=== PATIENT | male | born 1970 | race Caucasian/White ===

== ENCOUNTER 2016-11-19 20:13 | Emergency (ER) | payer SELFPAY ==
[~2016-11-19] VITALS: Ht 177.8 cm; Wt 68.0 kg
[~2016-11-19 20:13] MED LIST: ASPI1TAB69 PO; BUSP5TAB PO; CHLO25CA2 PO; CLIN1CAP5 PO; LEXA10TA PO; RANI150T PO; REME15TA PO; VITA100T54 PO; ZOFR4TAB PO
[2016-11-19 20:14] VITALS: BP 130/60; PULSE 58; RESP 16; TEMP 97.8; O2SAT 99
[2016-11-19] MEDS ORDERED: SODIUM CHLORIDE 0.9% FLUSH 5 ML FLUSH IVF PRN (20:30)
[2016-11-19] MEDS ORDERED: ONDANSETRON HCL 4 MG/2 ML VIAL IVP ONE (20:30)
--- NOTE | 2016-11-19 20:35 | PD ---
HPI Chief Complaint: Complaint Time Seen by Provider: 20:30 Travel History International Travel<30 days: No Contact w/Intl Traveler<30days: No Traveled to known affect area: No History of Present Illness HPI 46-year-old male with history of alcohol abuse in the past, currently at [facility] for EtOH detox, urgency emergency Department with lower abdominal pain, decreased urine production with bilateral flank pain since this morning. Patient has a history of kidney stones in the past but otherwise no history of UTI or prostate problems. Patient does report to Dr. Avendaño he does have frequent urination at night, dribbling, and decreased stream over the past months. Patient has had some nausea but no vomiting fever chills or other symptoms. He has had a tiny amount of urinary production all day. Patient is currently on Librium for EtOH withdrawal prescribed by [facility]. Patient denies chest pain or shortness of breath. He is allergic to Aleve, Naprosyn, penicillin, and Vicodin. PFSH Past Medical History Hx Anticoagulant Therapy: Yes Arthritis: Yes (KNEES) Autoimmune Disease: No Bipolar Disorder: Yes (SCHIZOAFFECTIVE) Anxiety: Yes Depression: Yes Cancer: No Cardiovascular Problems: Yes (STENT x2/MIx2) Chest Pain: Yes Cerebrovascular Accident: No Diminished Hearing: No Diverticulitis: Yes Endocrine: No Gastrointestinal Disorders: Yes (DIVERTICULITIS) GERD: Yes Genitourinary: No Hypertension: Yes Immune Disorder: No Implanted Vascular Access Dvce: No Musculoskeletal: Yes Neurologic: Yes Psychiatric: Yes (HALLUCINATIONS) Reproductive: Yes (Genital warts) Respiratory: No Migraines: Yes Myocardial Infarction: Yes Schizophrenia: Yes Seizures: Yes Ulcer: Yes PNEUMOCCOCAL Vaccine (Year): 2010 Past Surgical History Abdominal Surgery: Yes (UMBILICAL HERNIA REPAIR X2) Appendectomy: Yes Other Surgery: Yes (GENITAL WARTS) Social History Alcohol Use: No (AT [facility]) Tobacco Use: Yes (2 PPD) Substance Use: Yes (MARIJUANA ON Tuesday10/14/16) Allergies-Medications (Allergen,Severity, Reaction): Coded Allergies: Aleve (Verified Allergy, Severe, CHIP DALJIT SYNDROME, SKIN FEELS LIKE IT IS BURNING, 11/19/16) Naproxen (Verified Allergy, Severe, CHIP DALJIT SYNDROME, SKIN FEELS LIKE IT IS BURNING., 11/19/16) Penicillin (Verified Allergy, Severe, HIVES, 11/19/16) Vicodin (Verified Allergy, Severe, ITCH, 11/19/16) Reported Meds & Prescriptions Reported Meds & Active Scripts Active Flomax (Tamsulosin HCl) 0.4 Mg Cap 0.4 Mg PO HS Cipro (Ciprofloxacin HCl) 500 Mg Tab 500 Mg PO BID Ranitidine (Ranitidine HCl) 150 Mg Tab 150 Mg PO BID Zofran (Ondansetron HCl) 4 Mg Tab 4 Mg PO Q6HR PRN 3 Days Clindamycin (Clindamycin HCl) 150 Mg Cap 300 Mg PO Q8HR 10 Days Reported Remeron (Mirtazapine) 15 Mg Tab 15 Mg PO HS Lexapro (Escitalopram Oxalate) 10 Mg Tab 10 Mg PO HS Buspirone (Buspirone HCl) 5 Mg Tab 5 Mg PO BID Aspirin 81 Mg Tabdr 81 Mg PO DAILY Chlordiazepoxide (Chlordiazepoxide HCl) 25 Mg Cap 25 Mg PO QID PRN Vitamin B-1 (Thiamine HCl) 100 Mg Tab 100 Mg PO DAILY Review of Systems Except as stated in HPI: all other systems reviewed are Neg General / Constitutional: No: Fever Eyes: No: Visual changes HENT: No: Headaches Cardiovascular: No: Chest Pain or Discomfort Respiratory: No: Shortness of Breath Gastrointestinal: Positive: Nausea, Abdominal Pain, No: Vomiting, Diarrhea Genitourinary: Positive: Urgency, Decreased Urinary Output, Pelvic Pain, Flank Pain, No: Frequency, Dysuria, Nocturia, Hematuria, Oliguria, Hesitancy, Dribbling, Incontinence, Discharge Musculoskeletal: No: Pain Skin: No Rash Neurologic: Positive: Tremor (current from EtOH withdrawal. See history of present illness.), No: Weakness Psychiatric: Positive: Substance Abuse, No: Anxiety, Depression, Suicidal Ideations, Homicidal Ideation Endocrine: No: Polydipsia Hematologic/Lymphatic: No: Easy Bruising Physical Exam Narrative GENERAL: Patient appears mildly anxious and tremulous in mild to moderate distress. SKIN: Warm and dry. Normal color. Normal turgor. HEAD: Atraumatic. Normocephalic. EYES: Pupils equal and round. No scleral icterus. No injection or drainage. ENT: No nasal bleeding or discharge. Mucous membranes pink and moist. Airways patent. Pharynx is normal. NECK: Trachea midline. No JVD. Neck is supple. CARDIOVASCULAR: Regular rate and rhythm. RESPIRATORY: No accessory muscle use. Clear to auscultation. Breath sounds equal bilaterally. GASTROINTESTINAL: Abdomen soft, diffuse lower abdominal tenderness with moderate distention consistent with urinary retention. Hepatic and splenic margins not palpable. Moderate bilateral CVA tenderness. MUSCULOSKELETAL: Extremities without clubbing, cyanosis, or edema. No obvious deformities. NEUROLOGICAL: Awake and alert. No obvious cranial nerve deficits. Motor grossly within normal limits. Five out of 5 muscle strength in the arms and legs. Normal speech. PSYCHIATRIC: Appropriate mood and affect; insight and judgment normal. Data Data Last Documented VS Vital Signs Date Time Temp Pulse Resp B/P Pulse Ox O2 Delivery O2 Flow Rate FiO2 11/19/16 20:14 97.8 58 16 130/60 99 Room Air Orders Complete Blood Count With Diff (11/19/16 20:28) Comprehensive Metabolic Panel (11/19/16 20:28) Urinalysis - C+S If Indicated (11/19/16 20:28) Iv Access Insert/Monitor (11/19/16 20:28) Ondansetron Inj (Zofran Inj) (11/19/16 20:30) Sodium Chloride 0.9% Flush (Ns Flush) (11/19/16 20:30) Urinary Catheter Insert/Apply (11/19/16 20:28) Tamsulosin (Flomax) (11/19/16 21:45) Ciprofloxacin (Cipro) (11/19/16 21:45) Acetaminophen (Tylenol) (11/19/16 21:45) Mandatory Outpatient Referral (11/19/16 21:48) Labs Laboratory Tests Test 11/19/16 20:45 White Blood Count 7.5 TH/MM3 Red Blood Count 4.25 MIL/MM3 Hemoglobin 13.8 GM/DL Hematocrit 39.0 % Mean Corpuscular Volume 91.7 FL Mean Corpuscular Hemoglobin 32.4 PG Mean Corpuscular Hemoglobin 35.4 % Concent Red Cell Distribution Width 14.9 % Platelet Count 159 TH/MM3 Mean Platelet Volume 10.2 FL Neutrophils (%) (Auto) 52.5 % Lymphocytes (%) (Auto) 37.1 % Monocytes (%) (Auto) 7.0 % Eosinophils (%) (Auto) 2.6 % Basophils (%) (Auto) 0.8 % Neutrophils # (Auto) 3.9 TH/MM3 Lymphocytes # (Auto) 2.8 TH/MM3 Monocytes # (Auto) 0.5 TH/MM3 Eosinophils # (Auto) 0.2 TH/MM3 Basophils # (Auto) 0.1 TH/MM3 CBC Comment DIFF FINAL Differential Comment Urine Color COLORLESS Urine Turbidity CLEAR Urine pH 5.0 Urine Specific [place] 1.007 Urine Protein NEG mg/dL Urine Glucose (UA) NEG mg/dL Urine Ketones NEG mg/dL Urine Occult Blood NEG Urine Nitrite NEG Urine Bilirubin NEG Urine Urobilinogen LESS THAN 2.0 MG/DL Urine Leukocyte Esterase NEG Microscopic Urinalysis Comment CULT NOT INDICATED Sodium Level 140 MEQ/L Potassium Level 4.4 MEQ/L Chloride Level 108 MEQ/L Carbon Dioxide Level 25.0 MEQ/L Anion Gap 7 MEQ/L Blood Urea Nitrogen 28 MG/DL Creatinine 1.01 MG/DL Estimat Glomerular Filtration 80 ML/MIN Rate Random Glucose 88 MG/DL Calcium Level 9.4 MG/DL Total Bilirubin 0.2 MG/DL Aspartate Amino Transf 22 U/L (AST/SGOT) Alanine Aminotransferase 40 U/L (ALT/SGPT) Alkaline Phosphatase 62 U/L Total Protein 6.9 GM/DL Albumin 4.0 GM/DL MDM Medical Decision Making Medical Screen Exam Complete: Yes Emergency Medical Condition: Yes Differential Diagnosis Renal colic. Prostatitis. Urinary retention. Possible kidney stones. Narrative Course Patient is felt to be medically stable at time of exam although uncomfortable. IV access is obtained and the patient has labs drawn including CBC, CMP. Mccormick catheter is placed to see if the patient is truly having urinary retention. Urinalysis is ordered. Patient is discussed with Dr. Avendaño sees the patient as well. After fully displaced patient has over 1200 mL's urine out with improved symptoms and less distention the abdomen. Diagnosis Primary Impression: Acute urinary retention Referrals: Ky Zavaleta DO Patient Instructions: Mccormick Catheter Placement and Care (ED), General Instructions, Prostatitis (ED) Additional Instructions: Patient to Follow-up with Dr. Zavaleta within a week. Return to ED if needed. Take meds as prescribed. Med/Other Pt SpecificInfo: Prescription(s) given Scripts Tamsulosin (Flomax)0.4 Mg Cap0.4 Mg PO HS #30 CAP Ref 0 Prov:Chip Avendaño MD 11/19/16 Ciprofloxacin (Cipro)500 Mg [id number] Mg PO BID #20 TAB Prov:Chip Avendaño MD 11/19/16 Disposition: 01 DISCHARGE HOME Condition: Stable Rubio Camejo Nov 19, 2016 20:35
[2016-11-19 21:17] LABS: AUTOMATED NEUTROPHIL # 3.9 TH/MM3 (1.8-7.7); BASOPHIL # 0.1 TH/MM3 (0-0.2); BASOPHIL % 0.8 % (0.0-2.0); EOSINOPHIL # 0.2 TH/MM3 (0-0.4); EOSINOPHIL % 2.6 % (0.0-4.0); HEMO FLAGS DIFF FINAL; LYMPH % 37.1 % (9.0-44.0); LYMPHOCYTE # 2.8 TH/MM3 (1.0-4.8); MEAN CELL VOLUME 91.7 FL (80.0-100.0); MEAN CORPUSCULAR HEMOGLOBIN 32.4 PG (27.0-34.0); MEAN CORPUSCULAR HGB CONC 35.4 % (32.0-36.0); NEUT % 52.5 % (16.0-70.0); PLATELET COUNT 159 TH/MM3 (150-450); RED BLOOD COUNT 4.25 MIL/MM3 (4.50-5.90); RED CELL DISTRIBUTION WIDTH 14.9 % (11.6-17.2); WHITE BLOOD COUNT 7.5 TH/MM3 (4.0-11.0)
[2016-11-19 21:23] LABS: BLOOD, URINE NEG (NEG); COMMENT (UR) CULT NOT INDICATED; CULTURE IF INDICATED CULT NOT INDICATED; GLUCOSE,URINE NEG (NEG); KETONE, URINE NEG (NEG); NITRITE,URINE NEG (NEG); URINE COLOR COLORLESS (YELLW/STRAW)
[2016-11-19 21:38] LABS: ANION GAP 7 MEQ/L (5-15); AST (GOT) 22 U/L (15-37); BLOOD UREA NITROGEN 28 MG/DL (7-18); CHLORIDE 108 MEQ/L (98-107); GLOMERULAR FILTRATION RATE 80 ML/MIN (>89); POTASSIUM 4.4 MEQ/L (3.5-5.1); SODIUM (NA) 140 MEQ/L (136-145)
[2016-11-19 21:41] LABS: ALKALINE PHOSPHATASE 62 U/L (45-117); ALT (GPT) 40 U/L (12-78); TOTAL BILIRUBIN ADULT 0.2 MG/DL (0.2-1.0)
[2016-11-19] MEDS ORDERED: CIPROFLOXACIN 750 MG TAB PO ONE (21:45)
[2016-11-19] MEDS ORDERED: ACETAMINOPHEN 500 MG CPLT PO ONE (21:45)
[2016-11-19] MEDS ORDERED: TAMSULOSIN HCL 0.4 MG CAP PO ONE (21:45)
[2016-11-19] MEDS ORDERED: CIPR-9 PO (21:47)
[2016-11-19] MEDS ORDERED: TAMS5CAP PO (21:47)
--- NOTE | 2016-11-19 22:33 | PD ---
Data Data Last Documented VS Vital Signs Date Time Temp Pulse Resp B/P Pulse Ox O2 Delivery O2 Flow Rate FiO2 11/19/16 20:14 97.8 58 16 130/60 99 Room Air Orders Complete Blood Count With Diff (11/19/16 20:28) Comprehensive Metabolic Panel (11/19/16 20:28) Urinalysis - C+S If Indicated (11/19/16 20:28) Iv Access Insert/Monitor (11/19/16 20:28) Ondansetron Inj (Zofran Inj) (11/19/16 20:30) Sodium Chloride 0.9% Flush (Ns Flush) (11/19/16 20:30) Urinary Catheter Insert/Apply (11/19/16 20:28) Tamsulosin (Flomax) (11/19/16 21:45) Ciprofloxacin (Cipro) (11/19/16 21:45) Acetaminophen (Tylenol) (11/19/16 21:45) Mandatory Outpatient Referral (11/19/16 21:48) Labs Laboratory Tests Test 11/19/16 20:45 White Blood Count 7.5 TH/MM3 Red Blood Count 4.25 MIL/MM3 Hemoglobin 13.8 GM/DL Hematocrit 39.0 % Mean Corpuscular Volume 91.7 FL Mean Corpuscular Hemoglobin 32.4 PG Mean Corpuscular Hemoglobin 35.4 % Concent Red Cell Distribution Width 14.9 % Platelet Count 159 TH/MM3 Mean Platelet Volume 10.2 FL Neutrophils (%) (Auto) 52.5 % Lymphocytes (%) (Auto) 37.1 % Monocytes (%) (Auto) 7.0 % Eosinophils (%) (Auto) 2.6 % Basophils (%) (Auto) 0.8 % Neutrophils # (Auto) 3.9 TH/MM3 Lymphocytes # (Auto) 2.8 TH/MM3 Monocytes # (Auto) 0.5 TH/MM3 Eosinophils # (Auto) 0.2 TH/MM3 Basophils # (Auto) 0.1 TH/MM3 CBC Comment DIFF FINAL Differential Comment Urine Color COLORLESS Urine Turbidity CLEAR Urine pH 5.0 Urine Specific [place] 1.007 Urine Protein NEG mg/dL Urine Glucose (UA) NEG mg/dL Urine Ketones NEG mg/dL Urine Occult Blood NEG Urine Nitrite NEG Urine Bilirubin NEG Urine Urobilinogen LESS THAN 2.0 MG/DL Urine Leukocyte Esterase NEG Microscopic Urinalysis Comment CULT NOT INDICATED Sodium Level 140 MEQ/L Potassium Level 4.4 MEQ/L Chloride Level 108 MEQ/L Carbon Dioxide Level 25.0 MEQ/L Anion Gap 7 MEQ/L Blood Urea Nitrogen 28 MG/DL Creatinine 1.01 MG/DL Estimat Glomerular Filtration 80 ML/MIN Rate Random Glucose 88 MG/DL Calcium Level 9.4 MG/DL Total Bilirubin 0.2 MG/DL Aspartate Amino Transf 22 U/L (AST/SGOT) Alanine Aminotransferase 40 U/L (ALT/SGPT) Alkaline Phosphatase 62 U/L Total Protein 6.9 GM/DL Albumin 4.0 GM/DL MDM Supervised Visit with KARLOS: Yes Narrative Course The history, exam, and medical decision-making in the associated mid-level provider note were completed with my assistance. I reviewed and agree with the findings presented. I attest that I had a [id number] encounter with the patient on the same day, and personally performed and documented my assessment and findings in the medical record. *My assessment and Findings: 46-year-old male with history of some prostate symptoms including nocturia, weak stream, difficulty initiating stream, being treated at [facility] for alcohol symptoms, receiving Librium, presents with acute retention times today. No history of previous acute retention. Mccormick catheter placed with significant output. Recommend leg bag, urology follow-up. Diagnosis Primary Impression: Acute urinary retention Referrals: Ky Zavaleta DO Patient Instructions: General Instructions, Ciprofloxacin (By mouth), Tamsulosin (By mouth), Prostatitis (ED), Mccormick Catheter Placement and Care (ED) Departure Forms: Tests/Procedures Additional Instruction: Patient to Follow-up with Dr. Zavaleta within a week. Return to ED if needed. Take meds as prescribed. Scripts Tamsulosin (Flomax)0.4 Mg Cap0.4 Mg PO HS #30 CAP Ref 0 Prov:Chip Avendaño MD 11/19/16 Ciprofloxacin (Cipro)500 Mg [id number] Mg PO BID #20 TAB Prov:Chip Avendaño MD 11/19/16 Disposition: 01 DISCHARGE HOME Condition: Stable Chip Avendaño MD Nov 19, 2016 22:33
[2016-11-20] MEDS ORDERED: [UNRECOGNIZED DRUG - CODE] (02:03)
== END 2016-11-19 23:03 | disposition home or self-care (01) ==
LOC: NEPE 20:13
DX: R33.9 Retention of urine, unspecified (principal); R10.9 Unspecified abdominal pain; R35.1 Nocturia; R11.0 Nausea; I10 Essential (primary) hypertension; F17.200 Nicotine dependence, unspecified, uncomplicated; I25.2 Old myocardial infarction; Z87.442 Personal history of urinary calculi; Z79.01 Long term (current) use of anticoagulants; Z87.39 Personal history of other diseases of the musculoskeletal system and connective tissue; Z86.59 Personal history of other mental and behavioral disorders; Z86.79 Personal history of other diseases of the circulatory system; Z87.19 Personal history of other diseases of the digestive system; Z86.69 Personal history of other diseases of the nervous system and sense organs
CPT/HCPCS: 51702; 80053; 81001; 85025; 96374; 99284; J2405

== ENCOUNTER 2016-11-20 00:30 | Emergency (ER) | payer SELFPAY ==
[~2016-11-20 00:30] MED LIST changes: +CIPR-9 PO; +TAMS5CAP PO
[2016-11-20 00:33] VITALS: BP 144/72; PULSE 61; RESP 15; TEMP 97.6; O2SAT 98
--- NOTE | 2016-11-20 01:19 | PD ---
HPI Chief Complaint: Medical Clearance Time Seen by Provider: 00:48 Travel History International Travel<30 days: No Contact w/Intl Traveler<30days: No Traveled to known affect area: No History of Present Illness HPI 46-year-old man, history of homelessness alcoholism and depression, at [facility] for alcohol detox after he was [employer] for SI. He was reportedly intoxicated and playing [employer] with a firearm. He no longer has the firearm. He was at [facility] when he developed acute urinary retention. He is apparently on about a 3 or 4. He has a plan to go on Tuesday to a long- term detox program in [place]. He was treated for acute urinary retention. Labs are normal. He had a Mccormick catheter placed. Was discharged back to [facility] but was sent back here as apparently having a Mccormick catheter is outside of their scope. History Past Medical History Narrative Medical Depression Alcoholism PNEUMOCCOCAL Vaccine (Year): 2010 Social History Alcohol Use: No (AT [facility]) Tobacco Use: Yes (10/25 PPD) Allergies-Medications (Allergen,Severity, Reaction): Coded Allergies: Aleve (Verified Allergy, Severe, CHIP DALJIT SYNDROME, SKIN FEELS LIKE IT IS BURNING, 11/20/16) Naproxen (Verified Allergy, Severe, CHIP DALJIT SYNDROME, SKIN FEELS LIKE IT IS BURNING., 11/20/16) Penicillin (Verified Allergy, Severe, HIVES, 11/20/16) Vicodin (Verified Allergy, Severe, ITCH, 11/20/16) Reported Meds & Prescriptions Reported Meds & Active Scripts Active Flomax (Tamsulosin HCl) 0.4 Mg Cap 0.4 Mg PO HS Cipro (Ciprofloxacin HCl) 500 Mg Tab 500 Mg PO BID Reported Lexapro (Escitalopram Oxalate) 10 Mg Tab 10 Mg PO HS Buspirone (Buspirone HCl) 5 Mg Tab 5 Mg PO BID Aspirin 81 Mg Tabdr 81 Mg PO DAILY Chlordiazepoxide (Chlordiazepoxide HCl) 25 Mg Cap 25 Mg PO QID PRN Review of Systems Except as stated in HPI: all other systems reviewed are Neg Physical Exam Narrative GENERAL: Well-appearing 46-year-old man. No acute distress. SKIN: Warm and dry. CARDIOVASCULAR: Warm and well perfused. RESPIRATORY: Normal rate and effort. MUSCULOSKELETAL: No deformity. NEUROLOGICAL: Awake and alert. No gross deficits. Data Data Last Documented VS Vital Signs Date Time Temp Pulse Resp B/P Pulse Ox O2 Delivery O2 Flow Rate FiO2 11/20/16 00:33 97.6 61 15 144/72 98 Room Air Orders Psych Screen (11/20/16 00:48) MDM Medical Decision Making Medical Screen Exam Complete: Yes Emergency Medical Condition: Yes Differential Diagnosis Depression, alcoholism, substance induced mood disorder, other Narrative Course Medical decision making 46-year-old man with a history depression and alcoholism, presents to the emergency department sent from [facility]. He was in their detox program. He ended up there after being [employer] for suicidality involving a firearm. At this point, we'll have psychiatry evaluate patient to see if he would be a candidate for psychiatric admission, reassess. Spoke with psychiatry. Renea, psych screener, spoke with [facility]. They' re willing to take patient back with either no catheter intermittent self catheter. I don't think the patient's likely to void on his own. Patient is very motivated to get through to this long-term detox program on Tuesday. He is willing to do intermittent self catheter as needed, understanding this is not our typical treatment regimen. We did start him on Flomax, and he may improve to the point that he will not need this. We'll pull Mccormick catheter, instructed on intermittent self catheterization, sent him with 6 catheters to use 3 times daily as needed. Continue Flomax. Diagnosis Primary Impression: Acute urinary retention Additional Instructions: Use intermittent self catheterization as instructed 3 times daily as needed. Continue Flomax. Return to the emergency department for any new or worsening symptoms. Med/Other Pt SpecificInfo: Prescription(s) given Scripts Incontinence Supplies ([facility] Mccormick Catheter St)1 Mis Mis #30 Applic .xx Prov:Chip Avendaño MD 11/20/16 Disposition: 01 DISCHARGE HOME Condition: Stable Chip Avendaño MD Nov 20, 2016 01:19
[2016-11-20] MEDS ORDERED: [UNRECOGNIZED DRUG - CODE] (02:03)
[2016-11-20] MEDS ORDERED: chlordiazePOXIDE 25 MG CAP PO PRN (03:45)
[2016-11-20 04:30] VITALS: BP 151/82; PULSE 67; RESP 18; O2SAT 99
--- NOTE | 2016-11-20 06:19 | PD ---
Data Data Last Documented VS Vital Signs Date Time Temp Pulse Resp B/P Pulse Ox O2 Delivery O2 Flow Rate FiO2 11/20/16 04:30 67 18 151/82 99 Room Air 11/20/16 00:33 97.6 Orders Psych Screen (11/20/16 00:48) Chlordiazepoxide (Librium) (11/20/16 03:45) MDM Supervised Visit with KARLOS: No Diagnosis Primary Impression: Acute urinary retention Patient Instructions: General Instructions, How to Catheterize Yourself (Man) ( GEN) Additional Instruction: Use intermittent self catheterization as instructed 3 times daily as needed. Continue Flomax. Return to the emergency department for any new or worsening symptoms. Scripts Incontinence Supplies ([facility] Mccormick Catheter St)1 Mis Mis #30 Applic .xx Prov:Chip Avendaño MD 11/20/16 Disposition: 01 DISCHARGE HOME Condition: Stable Chip Avendaño MD Nov 20, 2016 06:19
== END 2016-11-20 06:48 | disposition home or self-care (01) ==
LOC: NEPE 00:30
DX: R33.9 Retention of urine, unspecified (principal)
CPT/HCPCS: 99282

== ENCOUNTER 2017-11-15 16:09 | Inpatient (IN) | payer OTHER ==
[~2017-11-15] VITALS: Ht 172.7 cm; Wt 69.2 kg
[~2017-11-15 16:09] MED LIST changes: -CLIN1CAP5 PO; -RANI150T PO; -REME15TA PO; -VITA100T54 PO; -ZOFR4TAB PO; +[UNRECOGNIZED DRUG - CODE]
[2017-11-15 17:58] VITALS: BP 126/86; PULSE 54; RESP 19; TEMP 98.3
[2017-11-15] MEDS ORDERED: QUET1TAB7 PO (18:09)
[2017-11-15] MEDS ORDERED: ALPR0.5T3 PO (18:09)
[2017-11-15] MEDS ORDERED: QUET1TAB8 PO (18:09)
[2017-11-15] MEDS ORDERED: NICO14DI T-DERMAL (18:09)
[2017-11-15] MEDS ORDERED: ASPI-516 CHEW (18:09)
[2017-11-15] MEDS ORDERED: FOLI400T PO (18:09)
[2017-11-15] MEDS ORDERED: COLA100C5 (18:09)
[2017-11-15] MEDS ORDERED: VITA100T54 PO (18:09)
[2017-11-15] MEDS ORDERED: TYLE325T PO (18:09)
[2017-11-15] MEDS ORDERED: SIMV40TA PO (18:09)
[2017-11-15] MEDS ORDERED: ALUMINUM/MAGNESIUM/SIMETH 30 ML CUP PO PRN (19:30)
[2017-11-15] MEDS ORDERED: MAGNESIUM HYDROXIDE SUSP 30 ML CUP PO PRN (19:30)
[2017-11-15] MEDS ORDERED: NON-FORMULARY DRUG (Simvastatin 40 MG) PO SCH (21:00)
[2017-11-15] MEDS: REMOVE OLD NICODERM (NICOTINE) PATCH T-DERMAL SCH (21:00)
[2017-11-15] MEDS: diphenhydrAMINE HCL 50 MG CAP PO PRN (21:20)
[2017-11-15] MEDS: PRAVASTATIN SOD 80 MG TAB PO SCH (21:20)
[2017-11-16 05:42] VITALS: BP 139/68; PULSE 51; RESP 17; TEMP 97.8; O2SAT 98
[2017-11-16] MEDS: ASPIRIN 81 MG CHEW TAB CHEW SCH (08:25)
[2017-11-16] MEDS: FOLIC ACID 1 MG TAB PO SCH (08:25)
[2017-11-16] MEDS: NICOTINE 14 MG/24 HR PATCH T-DERMAL SCH (08:29)
[2017-11-16] MEDS ORDERED: PNEUMOCOCCAL POLYVALENT INJ 25 MCG/0.5 ML SYR IM ONE (09:00)
[2017-11-16] MEDS ORDERED: INFLUENZA VIRUS VACCINE (QUADRIVALENT) 0.5 ML SYR IM ONE (09:00)
[2017-11-16] MEDS: THIAMINE HCL 100 MG TAB PO SCH (10:53)
--- NOTE | 2017-11-16 12:15 | HHI.HP ---
Provisional Diagnosis Admission Date Nov 15, 2017 at 17:42 Ermine I. Schizoaffective disorder depressed type of 25.1, alcohol abuse by history Certification of Person's Competence To Provide Express and Informed Consent I have personally examined Trey Gongora , a person being served at [facility] on, Nov 16, 2017 11:55. Express and informed consent means consent voluntarily given in writing, by a competent person, after sufficient explanation and disclosure of the subject matter involved to enable the person to make a knowing and willful decision without any element of force, fraud, deceit, duress, or other form of constraint or coercion. This person is 18 years of age or older, is not now known to be incompetent to consent to treatment with a guardian advocate, and does not have a health care surrogate or proxy currently making medical treatment decisions. I have found this person to be one of the following: [xxxx] Competent to provide express and informed consent, as defined above, for voluntary admission to this facility and is competent to provide express and informed consent for treatment. He/she has the consistent capacity to make well reasoned, willful, and knowing decisions concerning his or her medical or mental health treatment. The person fully and consistently understands the purpose of the admission for examination/placement and is fully capable of personally exercising all rights assured [place] Incompetent to provide express and informed consent to voluntary admission, and this is incompetent to provide express and informed consent to treatment. The person must be transferred to involuntary status and a petition for a guardian advocate filed with the Circuit Court. [] Refusing to provide express and informed consent to voluntary admission but is competent to provide express and informed consent for treatment. The person must be discharged or transferred to involuntary status. Form shall be completed within 24 hours of a person's arrival at the receiving facility and filed in the clinical record of each person: 1. Admitted on a voluntary basis 2. Permitted to provide express and informed consent to his/her own treatment 3. Allowed to transfer from involuntary to voluntary status 4. Prior to permitting a person to consent to his or her own treatment after having been previously found incompetent to consent to treatment. History of Present Illness Capacity: Has Capacity Psych Chief Complaint: depression suicidal ideation HPI Patient is a 47-year-old white male who comes here under Boucher act signed by froilan saavedra from [facility] dated 11/14/17 at 1311 hrs. that document reviewed it essentially is stating "un controlled schizoaffective disorder severe anxiety depression suicidal idea persistent, alcohol abuse, drug abuse tobacco abuse that also states a previous attempt reported said [place] in hand on attempting at access to many guns and persistent idea for suicidal upon discussing discharge plans after medical clearance said "I need help I will just take care of myself pending after going home said to hang self and hospital bathroom I need one-to-one sitter" patient was admitted to [facility] on 11/06/17. The medical records faxed to us while we considered transfer to our psychiatric unit had no admitting laboratory data we do not know patient's urine toxicology, we did not know his blood alcohol level on admission. At the time patient is also complaining of chest pain that was examined and cleared during the hospitalization There is a document faxed from [facility] dated 11/11/17 signed by a peter gentile md that states under treatment recommendations "patient does not meet the criteria for psychiatric hospitalization refer him to the outpatient substance abuse rehabilitation program, I have discussed the case at length with the medical doctor and advised her to decrease the dose of Librium 10 mg by mouth twice a day when necessary for alcohol withdrawal symptoms as he is not experiencing any withdrawal at this time. Discontinue Ativan and all other when necessary medications. Case management to help with the discharge planning. Thank you for allowing me to participate in the case of this patient" patient was medically cleared and transferred here under the Boucher act as mentioned above. Patient seen by me today on 2600 with nurse Janice present throughout session patient did recognize me from prior contact with hours working at [facility] see issue 5-6 years ago. Patient states he lives with a friend in a house in 2 of his brother. He acknowledges that he and his roommate drink daily. He acknowledges a.m. drinking, so drinking, blackouts spells, passing out, he drinks 1.75 L of gin or more daily. He acknowledges at least 5-6 detox programs over the past 20 years with at least 5-6 rehabilitation programs. The most recent detox being last year at [facility]. He subsequently spent 2 months in rehabilitation. States his sobriety lasted less than a month. He has not had any significant psychiatric follow-up. Restates Seroquel that was prescribed at [facility] does help him sleep and calm him somewhat. He acknowledges strong family history of alcohol related issues. He states he has been twice, has no children. He is vague about any prior physical and/ or sexual abuse. He does denies suicidality to me today. He is aware of the role blocks to finding another inpatient rehabilitation program. He does acknowledge that his risk of relapse to drinking is very high. At the present time I feel patient does meet criteria for a brief further stabilization. But I do feel he has capacity to sign for this admission thus I'll lift the Boucher act allow him to sign voluntary. Will start Seroquel 50 mg at bedtime. Will refrain from any opiates or benzodiazepines.Counselor give patient a list of various sober living facilities for him to [facility] consider discharge 24-48 hours Review of Systems Constitutional: DENIES: Diaphoretic episodes, Fatigue, Fever, Weight gain, Weight loss, Chills, Dizziness, Change in appetite, Night Sweats Endocrine: DENIES: Heat/cold intolerance, Polydipsia, Polyuria, Polyphagia Eyes: DENIES: Blurred vision, Diplopia, Eye inflammation, Eye pain, Vision loss , Photosensitivity, Double Vision Ears, nose, mouth, throat: DENIES: Tinnitus, Hearing loss, Vertigo, Nasal discharge, Oral lesions, Throat pain, Hoarseness, Ear Pain, Running Nose, Epistaxis, Sinus Pain, Toothache, Odynophagia Respiratory: DENIES: Apneas, Cough, Snoring, Wheezing, Hemoptysis, Sputum production, Shortness of breath Cardiovascular: DENIES: Chest pain, Palpitations, Syncope, Dyspnea on Exertion , PND, Lower Extremity Edema, Orthopnea, Claudication Gastrointestinal: DENIES: Abdominal pain, Black stools, Bloody stools, Constipation, Diarrhea, Nausea, Vomiting, Difficulty Swallowing, Anorexia Genitourinary: DENIES: Sexual dysfunction, Urinary frequency, Urinary incontinence, Urgency, Hematuria, Dysuria, Nocturia, Penile Discharge, Testicular Pain, Testicular Swelling Musculoskeletal: DENIES: Joint pain, Muscle aches, Stiffness, Joint Swelling, Back pain, Neck pain Integumentary: DENIES: Abnormal pigmentation, Nail changes, Pruritus, Rash Hematologic/lymphatic: DENIES: Bruising, Lymphadenopathy Immunologic/allergic: DENIES: Eczema, Urticaria Neurologic: DENIES: Abnormal gait, Headache, Localized weakness, Paresthesias, Seizures, Speech Problems, Tremor, Poor Balance Psychiatric: COMPLAINS OF: Depression, Suicidal Ideation (denies) Past Psych History Psychological trauma history Denies Violence risk - others (6 mos) Low Violence risk - self (6 mos) Low to moderate Substance Abuse History Drugs/Alcohol past 12 months Active alcoholic Past Family Social History Coded Allergies: acetaminophen (Unverified Allergy, Severe, ITCH, 06/07/17) hydrocodone (Unverified Allergy, Severe, ITCH, 06/07/17) naproxen (Unverified Allergy, Severe, CHIP DALJIT SYNDROME, SKIN FEELS LIKE IT IS BURNING., 06/07/17) penicillin G (Unverified Allergy, Severe, HIVES, 06/07/17) Reported Medications Thiamine (Vitamin B-1) 100 Mg Tab, 100 MG PO DAILY for Nutritional Supplement, TAB 0 Refills 11/15/17 Simvastatin (Simvastatin) 40 Mg Tab, 40 MG PO HS for Cholesterol Management, # 30 TAB 0 Refills 11/15/17 Nicotine Patch (Nicotine Patch) 14 Mg/24 Hr Patch, 14 MG T-DERMAL DAILY for Smoking Cessation, #30 PATCH 0 Refills 11/15/17 Folic Acid (Folic Acid) 0.4 Mg Tab, 1 MG PO DAILY for Nutritional Supplement, TAB 0 Refills 11/15/17 Docusate Sodium (Colace) 100 Mg Capsule, BID 11/15/17 Aspirin (Aspirin) 81 Mg Chew, 81 MG CHEW DAILY, TAB 0 Refills 11/15/17 Acetaminophen (Tylenol) 325 Mg Tab, 325 MG PO ONCE, #1 TAB 0 Refills 11/15/17 Discontinued Reported Medications Quetiapine (Quetiapine) 25 Mg Tab, 25 MG PO DAILY, #30 TAB 0 Refills 11/15/17 Quetiapine (Quetiapine) 100 Mg Tab, 100 MG PO HS, #30 TAB 0 Refills 11/15/17 Alprazolam (Alprazolam) 0.5 Mg Tab, 0.5 MG PO Q12HR Y for ANXIETY, TAB 0 Refills 11/15/17 Escitalopram (Lexapro) 10 Mg Tab, 10 MG PO HS, #30 TAB 0 Refills 10/17/16 Buspirone (Buspirone) 5 Mg Tab, 5 MG PO BID for Anxiety, TAB 0 Refills 10/17/16 Aspirin (Aspirin) 81 Mg Tabdr, 81 MG PO DAILY, TAB 10/17/16 Chlordiazepoxide (Chlordiazepoxide) 25 Mg Cap, 25 MG PO QID Y for Anxiety, CAP 0 Refills 10/17/16 Discontinued Scripts Incontinence Supplies ([facility] [facility] [address] [facility]) 1 Mis Mis, APPLIC .XX, #30 Prov:Chip Avendaño MD 11/20/16 Tamsulosin (Flomax) 0.4 Mg Cap, 0.4 MG PO HS for Manage Prostate Problems, #30 CAP 0 Refills Prov:Chip Avendaño MD 11/19/16 Ciprofloxacin (Cipro) 500 Mg Tab, 500 MG PO BID for Infection, #20 TAB Prov:Chip Avendaño MD 11/19/16 Current Medications Medications (Trade) Dose Ordered Sig/Parth Route Start Time Stop Time Status Last Admin (Aspirin Chew) 81 mg DAILY CHEW 11/16/17 09:00 11/16/17 08:25 (Folate) 1 mg DAILY PO 11/16/17 09:00 11/16/17 08:25 (Habitrol 14 Mg Patch.24 Hr) 14 patch DAILY T-DERMAL 11/16/17 09:00 11/16/17 08:29 (Vitamin B1) 100 mg DAILY PO 11/16/17 09:00 11/16/17 10:53 (Benadryl) 50 mg HS PRN PO 11/15/17 19:30 11/15/17 21:20 (Milk Of Magnesia Liq) 30 ml DAILY PRN PO 11/15/17 19:30 (Mag-Al Plus Susp Liq) 30 ml Q6H PRN PO 11/15/17 19:30 (Pravachol) 80 mg HS PO 11/15/17 21:00 11/15/17 21:20 Miscellaneous Information 1 HS T-DERMAL 11/15/17 21:00 (Tylenol) 650 mg Q4H PRN PO 11/16/17 11:45 UNV (Tylenol) 325 mg ONCE PO 11/16/17 11:45 UNV Family Psych History Strong history substance abuse and alcohol and family Social History Patient single lives with roommate who is also an active alcoholic Patient's Strengths (min. 2) Patient verbal cooperative irritable axis health care Physical Exam Patient medically cleared through [facility] admission. The percent pacing quietly in his room he is in no acute distress, he is in no respiratory distress, no complaint abdominal pain. Patient moves all 4 extremities without difficulty, no abnormal motor movements noted Vital Signs Vital Signs Date Time Temp Pulse Resp B/P (MAP) Pulse Ox O2 Delivery O2 Flow Rate FiO2 11/16/17 05:42 97.8 51 17 139/68 (91) 98 Lab Results Test 11/16/17 10:43 Mental Status Examination Appearance: Appropriate Consciousness: Alert Orientation: x4 Motor Activity: Normal gait Speech: Unremarkable Language: Adequate Fund of Knowledge: Adequate Attention and Concentration: Adequate Memory: Unremarkable Mood: Sad (mildly dysphoric) Affect: Other (good range and intensity) Thought Process & Associations: Intact Thought Content: Appropriate Hallucination Type: None Delusion Type: None Suicidal Ideation: Yes (denies) Suicidal Plan: Yes (denies) Suicidal Intention: Yes (denies) Homicidal Ideation: No Homicidal Plan: No Homicidal Intention: No Insight: Fair Judgment: Impulsive Assessment & Plan Problem List: (1) History of alcohol abuse ICD Codes: Z87.898 - Personal history of other specified conditions (2) Schizoaffective disorder ICD Codes: F25.9 - Schizoaffective disorder, unspecified Status: Acute Assessment & Plan Estimated LOS: 2-3 days patient is criteria for further observation assessment , though I feel he has the capacity sign voluntary will lift Boucher act allow him to sign voluntary. We will add Seroquel 50 mg daily at bedtime. Will refrain from benzodiazepines or opiates. Will of counselor supply patient with sober living information for him to explore Discharge Planning Patient can return to his home where she shares with another drinker. Look towards perhaps a sober living Request HC Surrog/Guard Advoc?: No Problem Qualifiers (1) Schizoaffective disorder: Qualified Codes: F25.1 - Schizoaffective disorder, depressive type Rayshawn Lee MD Nov 16, 2017 12:15
[2017-11-16 12:22] LABS: BICARBONATE 25.6 MEQ/L (21.0-32.0); BLOOD UREA NITROGEN 9 MG/DL (7-18); CALCIUM 9.7 MG/DL (8.5-10.1); CHLORIDE 108 MEQ/L (98-107); CHOLESTEROL 165 MG/DL (120-200); CREATININE 0.85 MG/DL (0.60-1.30); GLOMERULAR FILTRATION RATE 97 ML/MIN (>89); GLUCOSE,RANDOM 76 MG/DL (74-106); SODIUM (NA) 142 MEQ/L (136-145)
[2017-11-16 12:32] LABS: CHOLESTEROL/ HDL RATIO 3.13 RATIO; HDL CHOLESTEROL 52.6 MG/DL (40.0-60.0); LDL CHOLESTEROL 91 MG/DL (0-99); TRIGLYCERIDES 107 MG/DL (42-150)
--- NOTE | 2017-11-16 12:47 | PD.CONS ---
HPI Service [facility] Consult Requested By Reason for Consult medical management Primary Care Physician No Primary Care Physician Diagnoses: History of Present Illness patient is a 47 y/o male with history of depression, anxiety, CAD- alcohol abuse was transferred from [facility] because of suicidal thoughts. he says that ' he drinks a lot'. he went to [facility] with chest pain. he was evaluated for chest pain and was cleared for discharge. however due to some suicidal comments, he was admitted to the psych unit. at the time of my evaluation he was resting comfortably with no chest pain, sob, dizziness, nausea or abdominal pain but he was asking for ' something for his anxiety'. Review of Systems Constitutional: DENIES: Fever, Weight loss, Chills, Night Sweats Eyes: DENIES: Blurred vision, Diplopia, Vision loss, Double Vision Ears, nose, mouth, throat: DENIES: Tinnitus, Vertigo, Throat pain, Epistaxis Respiratory: DENIES: Apneas, Cough, Snoring, Wheezing, Hemoptysis, Sputum production, Shortness of breath Cardiovascular: DENIES: Chest pain, Palpitations, Syncope, Dyspnea on Exertion , PND, Lower Extremity Edema, Orthopnea, Claudication Gastrointestinal: DENIES: Abdominal pain, Black stools, Bloody stools, Constipation, Diarrhea, Nausea, Vomiting, Difficulty Swallowing, Anorexia Genitourinary: DENIES: Urinary frequency, Urgency, Hematuria, Dysuria Musculoskeletal: DENIES: Joint pain, Muscle aches, Stiffness, Joint Swelling Integumentary: DENIES: Rash Neurologic: DENIES: Abnormal gait, Headache, Localized weakness, Paresthesias, Seizures, Speech Problems, Tremor, Poor Balance Psychiatric: COMPLAINS OF: Anxiety, Suicidal Ideation, DENIES: Confusion, Mood changes, Depression, Hallucinations, Agitation, Homicidal Ideation, Delusions Past Family Social History Allergies: Coded Allergies: acetaminophen (Unverified Allergy, Severe, ITCH, 06/07/17) hydrocodone (Unverified Allergy, Severe, ITCH, 06/07/17) naproxen (Unverified Allergy, Severe, LISANDRO DALJIT SYNDROME, SKIN FEELS LIKE IT IS BURNING., 06/07/17) penicillin G (Unverified Allergy, Severe, HIVES, 06/07/17) Past Medical History CAD- s/p stent placement/ hypertension/ dyslipidemia/ depression Past Surgical History cardiac stent placement/ hernia repair. Reported Medications aspirin/ simvastatin. Active Ordered Medications Inpatient Medications Acetaminophen (Tylenol) 325 mg ONCE PO ; Start 11/16/17 at 11:45; Status UNV Al Hydrox/Mg Hydrox/Simethicone (Mag-Al Plus Susp Liq) 30 ml Q6H PRN PO DYSPEPSIA; Start 11/15/17 at 19:30 Aspirin (Aspirin Chew) 81 mg DAILY CHEW Last administered on 11/16/17at 08:25; Start 11/16/17 at 09:00 Diphenhydramine HCl (Benadryl) 50 mg HS PRN PO INSOMNIA Last administered on at 21:20; Start 11/15/17 at 19:30 Folic Acid (Folate) 1 mg DAILY PO Last administered on 11/16/17at 08:25; Start 11/16/17 at 09:00 Influenza Virus Vaccine (Flu (Quadrivalent) Vaccine Inj) 0.5 ml ONCE ONCE IM ; Start 11/16/17 at 09:00; Stop 11/16/17 at 09:01; Status DC Magnesium Hydroxide (Milk Of Magnesia Liq) 30 ml DAILY PRN PO CONSTIPATION; Start 11/15/17 at 19:30 Miscellaneous Information 1 HS T-DERMAL ; Start 11/15/17 at 21:00 Nicotine (Habitrol 14 Mg Patch.24 Hr) 14 patch DAILY T-DERMAL Last administered on 11/16/17at 08:29; Start 11/16/17 at 09:00 Non-Formulary Medication 40 mg HS PO ; Start 11/15/17 at 21:00; Stop 11/15/17 at 21:00; Status DC Pneumococcal Polyvalent Vaccine (Pneumovax-23 Inj) 25 mcg ONCE ONCE IM ; Start 11/16/17 at 09:00; Stop 11/16/17 at 09:01; Status DC Pravastatin Sodium (Pravachol) 80 mg HS PO Last administered on 11/15/17at 21:20 ; Start 11/15/17 at 21:00 Quetiapine Fumarate (SEROquel) 50 mg HS PO ; Start 11/16/17 at 21:00; Status UNV Thiamine HCl (Vitamin B1) 100 mg DAILY PO Last administered on 11/16/17at 10:53 ; Start 11/16/17 at 09:00 Family History diabetes in brother. Social History smokes less than a pack a day- drinks daily. Physical Exam Vital Signs Vital Signs Date Time Temp Pulse Resp B/P (MAP) Pulse Ox O2 Delivery O2 Flow Rate FiO2 11/16/17 05:42 97.8 51 17 139/68 (91) 98 11/15/17 17:58 98.3 54 19 126/86 (99) Physical Exam GENERAL: This is a well-nourished, well-developed patient, in no apparent distress. SKIN: No rashes, ecchymoses or lesions. Cool and dry. HEAD: Atraumatic. Normocephalic. No temporal or scalp tenderness. EYES: Pupils equal round and reactive. Extraocular motions intact. No scleral icterus. No injection or drainage. ENT: Nose without bleeding, purulent drainage or septal hematoma. Throat without erythema, tonsillar hypertrophy or exudate. Uvula midline. Airway patent. NECK: Trachea midline. No JVD or lymphadenopathy. Supple, nontender, no meningeal signs. CARDIOVASCULAR: Regular rate and rhythm without murmurs, gallops, or rubs. RESPIRATORY: Clear to auscultation. Breath sounds equal bilaterally. No wheezes , rales, or rhonchi. GASTROINTESTINAL: Abdomen soft, non-tender, nondistended. No hepato-splenomegaly , or palpable masses. No guarding. MUSCULOSKELETAL: Extremities without clubbing, cyanosis, or edema. No joint tenderness, effusion, or edema noted. No calf tenderness. Negative Homans sign bilaterally. NEUROLOGICAL: Awake and alert. Cranial nerves II through XII intact. Motor and sensory grossly within normal limits. Five out of 5 muscle strength in all muscle groups. Normal speech. Laboratory Laboratory Tests Test 11/16/17 10:43 Blood Urea Nitrogen 9 Creatinine 0.85 Random Glucose 76 Calcium Level 9.7 Sodium Level 142 Potassium Level 4.3 Chloride Level 108 Carbon Dioxide Level 25.6 Anion Gap 8 Estimat Glomerular Filtration Rate 97 Triglycerides Level 107 Cholesterol Level 165 LDL Cholesterol 91 HDL Cholesterol 52.6 Cholesterol/HDL Ratio 3.13 Thyroid Stimulating Hormone 3rd Gen 0.803 Result Diagram: 11/16/17 1043 Assessment and Plan Assessment and Plan A/P - depression/ anxiety with suicidal thoughts management per psych. -CAD- s/p stent placement; continue aspirin and statin.. -alcohol abuse; counselled on drinking cessation- watch for withdrawal- continue thiamine and folic acid thank you for the consult. Discussed Condition With the patient and . Mar Ball MD Nov 16, 2017 12:47
[2017-11-16] MEDS ORDERED: ACETAMINOPHEN 325 MG TAB PO PRN (13:00)
[2017-11-16] MEDS ORDERED: ACETAMINOPHEN 325 MG TAB PO ONE (13:00)
[2017-11-16 15:33] LABS: HEMOGLOBIN A1C 5.5 % (4.3-6.0)
[2017-11-16 18:00] VITALS: BP 131/68; PULSE 68; RESP 18; TEMP 98.5; O2SAT 98
[2017-11-16] MEDS: REMOVE OLD NICODERM (NICOTINE) PATCH T-DERMAL SCH (20:15)
[2017-11-16] MEDS: PRAVASTATIN SOD 80 MG TAB PO SCH (20:15)
[2017-11-16] MEDS: diphenhydrAMINE HCL 50 MG CAP PO PRN (20:15)
[2017-11-16] MEDS ORDERED: QUEtiapine FUMARATE 25 MG TAB PO SCH (21:00)
[2017-11-17 05:34] VITALS: BP 140/79; PULSE 50; RESP 16; TEMP 97.8; O2SAT 99
[2017-11-17] MEDS: NICOTINE 14 MG/24 HR PATCH T-DERMAL SCH (09:00)
[2017-11-17] MEDS: THIAMINE HCL 100 MG TAB PO SCH (09:32)
[2017-11-17] MEDS: FOLIC ACID 1 MG TAB PO SCH (09:32)
[2017-11-17] MEDS: ASPIRIN 81 MG CHEW TAB CHEW SCH (09:32)
[2017-11-17] MEDS ORDERED: SERO25TA PO (14:18)
--- NOTE | 2017-11-17 14:22 | HHI.DS ---
Psychiatry Discharge Summary Inpatient Psychiatric care?: Yes Advance Directive: No Reason Not Provided: patient declined at this time Mental Health AdvanceDirective: Berger and Number: patient declined at this time Health Care Proxy: Berger and Phone Number: patient declined at this time Admission Admission Date Nov 15, 2017 at 17:42 Admission Diagnosis: (1) Schizoaffective disorder ICD Code: F25.9 - Schizoaffective disorder, unspecified (2) History of alcohol abuse ICD Code: Z87.898 - Personal history of other specified conditions Brief History Patient is a 47-year-old white male who comes here under [employer] act signed by froilan saavedra from [facility] dated 11/14/17 at 1311 hrs. that document reviewed it essentially is stating "un controlled schizoaffective disorder severe anxiety depression suicidal idea persistent, alcohol abuse, drug abuse tobacco abuse that also states a previous attempt reported said [place] in hand on attempting at access to many guns and persistent idea for suicidal upon discussing discharge plans after medical clearance said "I need help I will just take care of myself pending after going home said to hang self and hospital bathroom I need one-to-one sitter" patient was admitted to [facility] on 11/06/17. The medical records faxed to us while we considered transfer to our psychiatric unit had no admitting laboratory data we do not know patient's urine toxicology, we did not know his blood alcohol level on admission. At the time patient is also complaining of chest pain that was examined and cleared during the hospitalization There is a document faxed from [facility] dated 11/11/17 signed by froilan gentile md that states under treatment recommendations "patient does not meet the criteria for psychiatric hospitalization refer him to the outpatient substance abuse rehabilitation program, I have discussed the case at length with the medical doctor and advised her to decrease the dose of Librium 10 mg by mouth twice a day when necessary for alcohol withdrawal symptoms as he is not experiencing any withdrawal at this time. Discontinue Ativan and all other when necessary medications. Case management to help with the discharge planning. Thank you for allowing me to participate in the case of this patient" patient was medically cleared and transferred here under the [employer] act as mentioned above. Patient seen by me today on 2600 with nurse Janice present throughout session patient did recognize me from prior contact with hours working at [facility] see issue 5-6 years ago. Patient states he lives with a friend in a house in 2 of his brother. He acknowledges that he and his roommate drink daily. He acknowledges a.m. drinking, so drinking, blackouts spells, passing out, he drinks 1.75 L of gin or more daily. He acknowledges at least 5-6 detox programs over the past 20 years with at least 5-6 rehabilitation programs. The most recent detox being last year at [email or web address]. He subsequently spent 2 months in rehabilitation. States his sobriety lasted less than a month. He has not had any significant psychiatric follow-up. Restates Seroquel that was prescribed at [facility] does help him sleep and calm him somewhat. He acknowledges strong family history of alcohol related issues. He states he has been twice, has no children. He is vague about any prior physical and/ or sexual abuse. He does denies suicidality to me today. He is aware of the role blocks to finding another inpatient rehabilitation program. He does acknowledge that his risk of relapse to drinking is very high. At the present time I feel patient does meet criteria for a brief further stabilization. But I do feel he has capacity to sign for this admission thus I'll lift the [facility] allow him to sign voluntary. Will start Seroquel 50 mg at bedtime. Will refrain from any opiates or benzodiazepines.Counselor give patient a list of various sober living facilities for him to [facility] consider discharge 24-48 hours Tobacco Use In Past 30 Days: 5 or More Cigarettes/Day Alcohol Use: 4 or More Times Per Week Hospital Course Patient's hospital course was uneventful, patient seen today with nurse Rosario, patient states she slept well last night he now denies suicidality homicidality voices or visions. Patient is clean and neat dressed appropriately. He states he now has at least claimed desire to stop drinking. He is willing to go to meetings. And he is willing to make it effort at abstinence. He is willing to follow-up through [facility] for his mental health medications. Patient states she has enough of his medical medications at home we will only write a prescription for the Seroquel 50 mg at at bedtime #30 with no refills. Patient be discharged from [facility] Results Blood Pressure 140 / 79 Vital Signs Date Time Temp Pulse Resp B/P (MAP) Pulse Ox O2 Delivery O2 Flow Rate FiO2 11/17/17 05:34 97.8 50 16 140/79 (99) 99 Laboratory Tests Test 11/16/17 10:43 Chloride Level 108 MEQ/L (98-107) Laboratory Results Test 11/16/17 10:43 Cholesterol Level 165 MG/DL (120-200) HDL Cholesterol 52.6 MG/DL (40.0-60.0) Hemoglobin A1c 5.5 % (4.3-6.0) LDL Cholesterol 91 MG/DL (0-99) Triglycerides Level 107 MG/DL (42-150) Summary of Procedures None done Pending results at discharge: No Medications # of Antipsychotic meds at D/C: 1 Approp Antipsych med options 1 - Minimum of three failed multiple trials of monotherapy. 2 - Documented plan to taper to monotherapy due to previous use of multiple meds OR cross-taper in progress at D/C. 3 - Documentation of augmentation of Clozapine. 4 - Justification other than those listed in allowable values 1-3, document here : Discharge Discharge Date: Nov 17, 2017 Discharge Diagnosis: (1) Schizoaffective disorder Diagnosis: Principal ICD Code: F25.9 - Schizoaffective disorder, unspecified Status: Acute (2) History of alcohol abuse Diagnosis: Secondary ICD Code: Z87.898 - Personal history of other specified conditions Pt Condition on Discharge: Stable Discharge Disposition: Discharge Home Discharge Instructions Diet Instructions: As Tolerated, No Restrictions Activities you can perform: Regular-No Restrictions Scheduled Appointment: [facility] (also referred to AA) Discharge Time > 30 minutes Mental Status Examination Appearance: Appropriate Consciousness: Alert Orientation: x4 Motor Activity: Normal gait Speech: Unremarkable Language: Adequate Fund of Knowledge: Adequate Attention and Concentration: Adequate Memory: Unremarkable Mood: Sad (mildly dysphoric) Affect: Other (good range and intensity) Thought Process & Associations: Intact Thought Content: Appropriate Hallucination Type: None Delusion Type: None Suicidal Ideation: Yes (denies) Suicidal Plan: Yes (denies) Suicidal Intention: Yes (denies) Homicidal Ideation: No Homicidal Plan: No Homicidal Intention: No Insight: Fair Judgment: Impulsive Discharge/Advance Care Plan Health Problems: (1) History of alcohol abuse (2) Schizoaffective disorder Goals to promote your health * To prevent worsening of your condition and complications * To maintain your health at the optimal level Directions to meet your goals Take your medications as prescribed Follow your dietary instruction Follow activity as directed Keep your appointments as scheduled Take your immunizations and boosters as scheduled If your symptoms worsen call your PCP, if no PCP go to Urgent Care Center or Emergency Room For 16/05 questions related to your inpatient stay or results of tests pending at discharge, please contact Dr. Rayshawn Lee at Smoking is Dangerous to Your Health. Avoid second hand smoking Problem Qualifiers (1) Schizoaffective disorder: Qualified Codes: F25.1 - Schizoaffective disorder, depressive type Rayshawn Lee MD Nov 17, 2017 14:22
--- NOTE | 2017-11-18 00:01 | EKG ---
Date Performed: 11/16/2017 Time Performed: 13:46:43 PTAGE: 47 years EKG: ECTOPIC ATRIAL BRADYCARDIA INCOMPLETE RIGHT BUNDLE BRANCH BLOCK ABNORMAL RHYTHM ECG PREVIOUS TRACING : 10/17/2016 16.44 Since the prior tracing, there has been no significant quezada DOCTOR: Marco Davidson Interpretating Date/Time 11/17/2017 23:59:26
== END 2017-11-17 16:25 | disposition home or self-care (01) | DRG 885 ==
LOC: H270 17:42 → H260 21:34
PROVIDERS: ADMIT Psychiatry & Neurology Psychiatry; ATTEND Psychiatry & Neurology Psychiatry
DX: F25.9 Schizoaffective disorder, unspecified (principal); E78.5 Hyperlipidemia, unspecified; F10.10 Alcohol abuse, uncomplicated; I25.10 Atherosclerotic heart disease of native coronary artery without angina pectoris; Z95.5 Presence of coronary angioplasty implant and graft; Z79.82 Long term (current) use of aspirin; F17.210 Nicotine dependence, cigarettes, uncomplicated
CPT/HCPCS: 80048; 80061; 83036; 84443; 93005; Q0163